=== PATIENT | female | born 1995 | race Caucasian/White ===

== ENCOUNTER 2018-07-02 09:50 | Outpatient (CLI) | payer SELFPAY ==
[2018-07-02 10:12] VITALS: BMI 33.4
[2018-07-02 10:39] LABS: Hematocrit 34.6 % (37-47); Hemoglobin 11.5 g/dl (12.0-15.0); Mean Corp Hgb Conc 33.2 g/gl (32-36); Mean Corpuscular Volume 87.2 fL (81-99); Mean Platelet Vol. 9.7 fl (6.2-12.0); Platelet Count 259 K/mm3 (150-450); RBC Distribution Width CV 13.4 % (11.6-14.6); RBC Distribution Width SD 42.8 fl (35.1-43.9); Red Blood Count 3.97 M/mm3 (4.2-5.4); White Blood Count 10.1 K/mm3 (4.4-11.0)
[2018-07-02 10:40] LABS: Scan Indicated on CBC? Y/N NO
[2018-07-02 10:51] LABS: Partial Thromboplast Time 26.6 Seconds (24.1-36.2); Prothrombin Time (Protime)PT. 13.6 SECONDS (11.7-14.9)
[2018-07-02 11:10] LABS: Protein, Urine (Random) 17.3 mg/dL (<11.9); Protein:Creat Ratio 278 mg/g CRE (0-200)
[2018-07-02 11:12] LABS: AST(SGOT) 18 U/L (15-37); Alanine Aminotransfer ALT/SGPT 18 U/L (13-56); Creatinine, Serum 0.48 mg/dL (0.55-1.02); EST Glomerular Filtration Rate 169 mL/min (>60); Est Glom Filt Rate - Afr Amer 204 mL/min (>60); Uric Acid 4.4 mg/dL (2.6-6.0)
[2018-07-03 12:23] LABS: 24H Urine Creat. Total Vol. 3.88 L; 24HR. Urine Creatinine 1.42 g/24 HR (0.70-1.90)
--- NOTE | 2018-07-07 08:22 | OB.TRI.HP_ITS ---
- Problem List (1) Headache in Status: Acute History of Present Illness Date of Service: 07/07/18 - Pt was seen in the office and sent to L&D Was patient seen by the physician?: Yes Reason For Visit: R/O PRE E Date of Service: 07/02/18 Final AURA: 09/05/18 Final AURA Source: LMP Gestational age: 31 Weeks and 3 Days History of Present Illness: Patient presented to the office with a headache that she described as a 1 out of 10 on the pain scale. She also noticed some dizziness when she went from a lyin g down position to a standing up position. She also noted some vision changes that resolved after blinking her eyes. Denied current vision changes, epigastric pain, right upper quadrant pain, nausea, vomiting, malaise. Allergies No Known Allergies Allergy (Verified 07/02/18 10:09) Laboratory Studies: Laboratory Tests 07/02/18 07/02/18 07/02/18 Range/Units 11:25 10:20 10:20 WBC (4.4-11.0) K/mm3 RBC (4.2-5.4) M/mm3 Hgb (12.0-15.0) g/dl Hct (37-47) % MCV (81-99) fL MCH (27.0-32.0) pg MCHC (32-36) g/gl RDW (11.6-14.6) % RDW Differential (35.1-43.9) fl Plt Count (150-450) K/mm3 MPV (6.2-12.0) fl PT (11.7-14.9) SECONDS INR APTT (24.1-36.2) Seconds Creatinine 0.48 L (0.55-1.02) mg/dL Estim Creat Clear Calc 149.50 ml/min Est GFR (MDRD) Af Amer 204 (>60) mL/min Est GFR (MDRD) Non-Af 169 (>60) mL/min Uric Acid 4.4 (2.6-6.0) mg/dL AST 18 (15-37) U/L ALT 18 (13-56) U/L U Random Total Protein 17.3 H (<11.9) mg/dL Ur Collection Duration 24.0 (24.0) HOURS Urine Total Volume 3.88 L Urine Creatinine 36.60 62.20 (NO RANGE EST.) mg/dL Ur Creatinine 24 Hour 1.42 (0.70-1.90) g/24 HR Protein/Creatinin Ratio 278 H (0-200) mg/g CRE 07/02/18 07/02/18 Range/Units 10:20 10:20 WBC 10.1 (4.4-11.0) K/mm3 RBC 3.97 L (4.2-5.4) M/mm3 Hgb 11.5 L (12.0-15.0) g/dl Hct 34.6 L (37-47) % MCV 87.2 (81-99) fL MCH 29.0 (27.0-32.0) pg MCHC 33.2 (32-36) g/gl RDW 13.4 (11.6-14.6) % RDW Differential 42.8 (35.1-43.9) fl Plt Count 259 (150-450) K/mm3 MPV 9.7 (6.2-12.0) fl PT 13.6 (11.7-14.9) SECONDS INR 1.0 APTT 26.6 (24.1-36.2) Seconds Creatinine (0.55-1.02) mg/dL Estim Creat Clear Calc ml/min Est GFR (MDRD) Af Amer (>60) mL/min Est GFR (MDRD) Non-Af (>60) mL/min Uric Acid (2.6-6.0) mg/dL AST (15-37) U/L ALT (13-56) U/L U Random Total Protein (<11.9) mg/dL Ur Collection Duration (24.0) HOURS Urine Total Volume L Urine Creatinine (NO RANGE EST.) mg/dL Ur Creatinine 24 Hour (0.70-1.90) g/24 HR Protein/Creatinin Ratio (0-200) mg/g CRE NST - FHR Rate Baby A FHR Category:: Category I Impression/Plan - Pre-e labs were drawn and normal - 24 hr urine protein started - BP's were normal - Follow up in the office
== END 2018-07-02 11:35 | disposition home or self-care (01) ==
LOC: WPOUT 09:55 → WP 09:56
PROVIDERS: Referring Provider Obstetrics & Gynecology; Visit Provider Obstetrics & Gynecology
DX: O26.893 Other specified pregnancy related conditions, third trimester (principal); R51 Headache; R42 Dizziness and giddiness; Z3A.31 31 weeks gestation of pregnancy
CPT/HCPCS: 36415; 59025; 59050; 82565; 82570; 84156; 84450; 84460; 84550; 85027; 85610; 85730; 99218; G0378

== ENCOUNTER 2018-08-30 06:54 | Inpatient (IN) | payer SELFPAY ==
[2018-08-30 06:57] VITALS: BMI 33.7
[2018-08-30 08:06] LABS: Absolute Lymphocyte Count 1.77 X10^3/ul (0.83-4.51); Absolute Neutrophil Count 4.4 X10^3/uL (2.0-7.7); Basophil# 0.01 X10^3/uL; Basophil% 0.1 % (0-1); Eosinophil# 0.03 X10^3/uL; Eosinophils% 0.4 % (0-5); Lymphocyte # 1.77 X10^3/ul (4.0); Lymphocyte % 26.4 % (19-41); Mean Corp Hgb Conc 33.3 g/gl (32-36); Mean Corpuscular Hgb 27.8 pg (27.0-32.0); Mean Corpuscular Volume 83.5 fL (81-99); Mean Platelet Vol. 8.4 fl (6.2-12.0); Monocyte# 0.46 X10^3/uL; Monocyte% 6.9 % (0-10); Neutrophil # 4.43 X10^3/uL (2.7-7.7); Neutrophil % 66.1 % (47-70); Platelet Count 211 K/mm3 (150-450); RBC Distribution Width CV 14.3 % (11.6-14.6); RBC Distribution Width SD 44.3 fl (35.1-43.9); Red Blood Count 3.95 M/mm3 (4.2-5.4); White Blood Count 6.7 K/mm3 (4.4-11.0)
[2018-08-30 08:07] LABS: POSITIVE COUNT NO; POSITIVE DIFFERENTIAL NO; POSITIVE MORPHOLOGY NO
[2018-08-30] MEDS: Lactated Ringers 1,000 ML 50 ML IV ×3 (08:11→12:53)
[2018-08-30] MEDS: Oxytocin 30 units/NS 500 ml 30 UNITS/500 ML IV.SOLN IV (08:12)
--- NOTE | 2018-08-30 10:59 | PCM.HP.OB ---
History Date of Admission: 08/30/18 Final AURA: 09/05/18 Final AURA Source: US <20 weeks Gestational age: 39 Weeks and 1 Days History of this : 23-year-old 2 para 1 at 39-1/7 weeks gestation with EDC of 09/05/2018 by first trimester ultrasound presents for elective induction of labor. has been complicated by maternal anxiety. She denies any vaginal bleeding, leaking of fluid. She has had good movement. Her anxiety is improved significantly since she was started on Zoloft 25 mg. She is also been on hydroxyzine 10 mg p.o. 3 times daily that was weaned down to 10 mg nightly recently. She has a history of gestational hypertension with her first , her first daughter was born with pulmonary valve stenosis but has not had any interventions. Patient has a history of seizures. Surgical history: She has a history of one previous vaginal delivery on 10/27/2016 of a 6 pound 5 ounce infant at 41-1/7 weeks gestation. She was induced for being 41 weeks. Allergies No Known Allergies Allergy (Verified 07/02/18 10:09) Home Medications: Home Medications Pnv No.103/Folic/Om3s/Fish Oil [ Gummies] 1 each PO DAILY 08/05/16 Aspirin [Aspirin, Baby] 81 mg PO DAILY@0800 07/02/18 Smoking Status: Never smoker Alcohol: None Number of Fetus(es): 1 Heart Tracing: Normal baseline, moderate variability, spontaneous accelerations upon admission. Repetitive decelerate TOCO Analysis: ctxs q 4-5 min History Past Pregnancies: Past Pregnancies Delivery Date Name GA/Weeks Outcome Route Weight Infant Gender Labor Length Anesthesia Delivery Location Provider FOB Expected Delivery Method: Spontaneous Vaginal Review of Systems Constitutional: Denies: Anorexia, Chills, Fever Eyes: Denies: Blurred vision, Vision Change Cardiovascular: Reports: Edema - trace. Denies: Chest Pain Respiratory: Reports: Cough - mild non productive, has had URI. Denies: Shortness of Breath Gastrointestinal: Denies: Abdominal Pain Genitourinary: Denies: Dysuria Skin: Denies: Rash Neurological: Denies: Blurred vision, Double vision, Change in Speech, Confusion Psychiatric: Reports: Anxiety Physical Exam General: Alert, Cooperative, No apparent distress Cardiovascular: Regular rate Lungs: Normal air movement Abdomen: Soft, Non Tender, Non-Distended, Gravid, Appropriate for Gestational Age Extremities:: Deep tendon reflexes - 2+, one beat of clonus, Other - trace edema Neurological: Negative for: Clonus EDUCATIONAL FUNDRAISING DIRECTOR: Normal external genitalia Estimated gestational size: Appropriate for gestational size Presentation: Cephalic Cervix Dilation (cm): 2.5 - AROM w/ moderte clear fluid Station: -2 Effacement (%): 70 Assessment/Plan All Active Problems Headache in (Acute) 23-year-old 2 para 1 at 39-1/7 weeks gestation for elective induction of labor. Risk benefits and alternatives to induction been discussed with patient, her questions were answered to her data section. Consent was signed. We will proceed with Pitocin and artificial rupture membranes induction. heart tones are reassuring and category 1 for the most part. Have epidural, nitrous oxide or Nubain as needed. Estimated weight is less than 4500 g clinically and pelvis clinically adequate to expect vaginal delivery. Patient had some mildly elevated blood pressures, but no symptoms of preeclampsia and her platelets are normal. We will continue to monitor for now.
[2018-08-30] MEDS: Oxytocin 30 units/NS 500 ml 30 UNITS/500 ML IV.SOLN 334 UNITS IV (16:37)
--- NOTE | 2018-08-30 16:54 | PCM.OB.VAG ---
Vaginal Delivery Maternal Presentation: Elective Induction Method of Induction: Pitocin, Amniotomy Amniotic Membrane Rupture Type: Artificial Amniotic Fluid Description: Clear Final AURA: 09/05/18 Final AURA Source: US <20 weeks Gestational age: 39 Weeks and 1 Days Date of Procedure: 08/30/18 Pre-Operative Diagnosis: labor Post-Operative Diagnosis: same Surgery/ Procedure Performed: Spontaneous Vaginal Delivery Type of Anesthesia: Epidural Description of Procedure: A vigorous female was delivered SUMAN over a second-degree perineal laceration. The remainder the was delivered with maternal pushing and gentle traction only in less than 15 seconds. The Pitocin infusion was initiated for active management of the third stage. The cord was clamped and cut after 1 minute. The infant was attended to by the waiting nursing staff. The placenta was delivered spontaneously and intact. The cervix and vagina were intact. The second-degree perineal laceration was repaired with 2-0 Vicryl suture in a running standard fashion. Sponge and needle counts were correct. A vaginal sweep was completed by me. Presentation: SUMAN Placental Delivery Description: Spontaneous Placenta Disposition: [facility] Cord Vessel Description: 3 Vessels Cord Entanglement: None Drain: Dempsey to straight drain Estimated Blood Loss: 200 Infant A gender: Female (1 minute): 8 (5 minute): 9 Episiotomy Description: None Laceration: 2nd degree Medications given after delivery: IV Pitocin Complications: None
[2018-08-30] MEDS: Oxytocin 30 units/NS 500 ml 30 UNITS/500 ML IV.SOLN 167 UNITS IV (17:10)
[2018-08-30] MEDS: Naproxen 250 MG Tablet 500 MG PO (17:40)
[2018-08-30 20:00] VITALS: BP 137/78; PULSE 96; RESP 16; TEMP 35.9; O2SAT 98
--- NOTE | 2018-08-30 20:00 | NURSING ---
Pt tearful at shift change. Talked with pt about plan of care and answered questions. Pt states she is anxious and needs rest. Pt denies pain and needs at this time.
[2018-08-30 23:27] VITALS: BP 127/72; PULSE 86; RESP 18; TEMP 36.4; O2SAT 96
[2018-08-30] MEDS: Zolpidem Tartrate 5 MG Tablet ORAL (23:31)
[2018-08-31 03:02] VITALS: BP 139/67; PULSE 81; RESP 16; TEMP 36.3
[2018-08-31] MEDS: Naproxen 250 MG Tablet 500 MG PO ×2 (04:21→12:47)
[2018-08-31] MEDS: Senna/Docusate Sodium 1 Tablet PO (04:22)
[2018-08-31 06:16] LABS: Hematocrit 32.7 % (37-47); Hemoglobin 10.5 g/dl (12.0-15.0); Mean Corp Hgb Conc 32.1 g/gl (32-36); Mean Corpuscular Hgb 27.3 pg (27.0-32.0); Mean Corpuscular Volume 85.2 fL (81-99); Mean Platelet Vol. 8.6 fl (6.2-12.0); Platelet Count 221 K/mm3 (150-450); RBC Distribution Width CV 14.1 % (11.6-14.6); Red Blood Count 3.84 M/mm3 (4.2-5.4); White Blood Count 9.3 K/mm3 (4.4-11.0)
[2018-08-31 06:21] LABS: Scan Indicated on CBC? Y/N NO
--- NOTE | 2018-08-31 07:56 | PCM.PN.OB ---
Subjective: Pain well controlled, average lochia. Had some significant anxiety last night but feels better this morning. Was able to sleep after taking some Ambien. - Physical Exam General: Alert, Cooperative, No apparent distress Lungs: Normal air movement Cardiovascular: Regular rate Abdomen: Soft, Non Tender, Non-Distended Extremities: Edema - trace Vital Signs Temp Pulse Resp BP Pulse Ox 97.4 F L 81 16 139/67 H 96 08/31/18 03:02 08/31/18 03:02 08/31/18 03:02 08/31/18 03:02 08/30/18 23:27 Oxygen Delivery Method Room Air Weight: 86.353 kg Body Mass Index (BMI) 33.7 Intake and Output for Last 24 Hours 08/29/18 08/30/18 08/31/18 23:59 23:59 23:59 Intake Total 2700 / 2700 Output Total 1200 / 1200 600 / 600 Balance 1500 / 1500 -600 / -600 Laboratory Tests Past 24 Hrs 08/30/18 08/30/18 08/31/18 07:50 07:50 05:48 WBC 6.7 9.3 RBC 3.95 L 3.84 L Hgb 11.0 L 10.5 L Hct 33.0 L 32.7 L MCV 83.5 85.2 MCH 27.8 27.3 MCHC 33.3 32.1 RDW 14.3 14.1 RDW Differential 44.3 H 43.0 Plt Count 211 221 MPV 8.4 8.6 Immature Gran % (Auto) 0.100 Neut % (Auto) 66.1 Lymph % (Auto) 26.4 [facility] % (Auto) 6.9 Eos % (Auto) 0.4 Baso % (Auto) 0.1 Absolute Neuts (auto) 4.4 Absolute Lymphs (auto) 1.77 Total Counted Not Reportable Blood Type B POSITIVE Antibody Screen NEGATIVE Medical Necessity - Tobacco Use Smoking Status: Never smoker Assessment/Plan All Active Problems Headache in (Acute) day #1 As per spontaneous vaginal delivery. Patient is doing well. Routine care. is working on breast-feeding and doing well. She desires discharge home today. Hydroxyzine that she was taking for anxiety due to concerns of it affecting breast milk supply Increase Zoloft to 50 mg daily In the office in 1-2 and 6 weeks or as needed
--- NOTE | 2018-08-31 08:01 | DCINST_ITS ---
Discharge Diet: No Restrictions Discharge Activity: Return to Normal Activity, May not drive while taking narcotic pain medications., May Shower May resume sexual activity in: 4-6 weeks Additional Activity Instructions:: Nothing in the vagina for 4-6 weeks. You may return to work/school in 6 weeks. Call your doctor if your incision/area has: Continuous Slow Oozing, Sudden Increased Bleeding, Increased Pain/ Swelling, Increased Redness, Foul Smelling Discharge Additional Instructions: If you experience any of the following, contact your healthcare provider. * Bleeding that soaks a pad every hour for 2 hours * Fever 100.4 or higher * Unrelieved incision or abdominal pain * Swelling, redness, discharge or bleeding from your incision or episiotomy site * Your incision begins to separate * Problems urinating (including inability to urinate or burning while urinating). * Visual changes * Severe headache * Flu-like symptoms * Pain or redness in one of both of your breasts * Pain, warmth, tenderness or swelling in your legs, especially the calf area * Frequent nausea and vomiting * Symptoms of depression or anxiety If you experience any of the following, call 911 or go to the nearest Emergency Room. * Chest pain * Problems breathing * Seizure activity * Partial or complete paralysis of a body part, slurred speech, weakness or drooping of the face, or a sudden inability to walk or hold your balance Allergies/Adverse Reactions: Allergies No Known Allergies Allergy (Verified 07/02/18 10:09) Medications to take at Discharge Pnv No.103/Folic/Om3s/Fish Oil [ Gummies] 1 each PO DAILY 08/05/16 Ibuprofen [Motrin] 600 mg PO Q6H PRN #60 tab 08/31/18 Sertraline HCl [Zoloft] 50 mg PO DAILY #30 tab 08/31/18 The following prescriptions were given: Sertraline HCl [Zoloft] 50 mg PO DAILY #30 tab Ibuprofen [Motrin] 600 mg PO Q6H PRN #60 tab PRN Reason: Pain Please Follow Up With: Gloria Mariscal MD - [phone] When: Call to make an appointment with your doctor in 6 weeks. Make a follow up in 1-2 weeks as well Primary Care Physician: Care Physician,No Primary [Primary Care Provider] - Test Results: Test results from this visit will be discussed in further detail at your follow- up appointment, if applicable.
[2018-08-31 08:09] VITALS: BP 129/80; PULSE 76; RESP 16; TEMP 36.1
[2018-08-31] MEDS: Acetaminophen 500 MG Tablet 1000 MG PO (09:07)
--- NOTE | 2018-08-31 10:56 | CASEMGMT ---
Addendum entered and electronically signed by Jaimie Diaz 08/31/18 16:44: Reviewed and approve PULP MILL SUPERVISOR student documentation below. -Jaimie Diaz, LEANDRO-Re, SURVEY TECHNICIAN Original Note: Social Work Labor and Delivery Date of Referral: 08/30/18 Time of Referral: 2218 Referred By:Dr. Parrish Date of Intervention: 08/31/18 Time of intervention: 1030am Reason for Referral: anxiety History obtained from: medical record, Mother of baby (MOB) Elena Jones Household Composition: MOB lives at home with father of baby Graeme Jones and their 2 year old daughter Alessandra. Patient's parent/guardian status: MOB and FOB have been together for over 4 years. MOB and FOB do not have children outside of their relationship. Medical history: MOB has been diagnosed with anxiety. MOB and seizure disorder when young due to being born premature but currently does not identify to have seizure disorder. ERINN's care began at 5 weeks. Baby Glynn was born on 08/30/18 at 6lbs and 2 oz with scores of 8 and 9. Educational Status: ERINN has completed 13 years of schooling. MOB confirmed to be able to read, write, and comprehend. Financial Status: ERINN did not work throughout and does not plan to get a job when medically ready. FOB is a game bird farmer. Infant supplies: ERINN reports to have car seat, bassinet for sleeping, clothing, diaper, wipes, and a breast pump. Childcare/givers: MOB and FOB will be primary care givers. ERINN's mother Becca will be supplemental direct care specialist. Transportation: MOB reported no issues with transportation as MOB and FOB both drive. Programs/agencies involved: MOB and FOB are not involved with any agencies. MOB accepted [facility] referral. Children Services/Legal issues: MOB denied any history with children services or having any legal issues. Behavioral Health Issues: Mental Health History: ERINN has been diagnosed with anxiety. MOB has been prescribed Zoloft for treatment. MOB also attends counseling appointments with a therapist/psychiatrist in [facility]. MOB denied experiencing PPD with of first child. MOB also denied any history or current thought/attempts of suicide. Substance use history: MOB denied any substance use prior or during . Family History: MOB did not note any family history of concern. Drug Screens: MOB tested negative at [facility] visit on 01/08/18. Family social stressors: MOB's main stressor is anxiety. MOB denied any other stressors at this time. Support systems: MOB identified FOB to be main support system. MOB's father also has been diagnosed with anxiety and has been supportive and helpful for MOB. MOB's mother and brother are also supports. PPD/ Shaken Baby/ Safe Sleeping: cinder pit worker software engineer intern reviewed information for PPD/Safe sleeping/shaken baby with MOB and MOB's mother Becca. Paper information provided in packets. ASSESSMENT: MOB was in room with mother Becca and baby Glynn. MOB's mother stayed for duration of assessment of general information. MOB answered all questions and provided information appropriately. MOB's mother later left so MOB could speak privately with social work software engineer intern. MOB was attentive for duration of conversation. MOB denied any domestic violence history or safety concerns with FOB or in the home. MOB became tearful when talking about anxiety. cinder pit worker software engineer intern provided emotional support. MOB spoke about when anxiety started in June [address] Mariscal was helpful and FOB was supportive. MOB reported anxiety stems from concerns with kelton Maki being born premature and having a seizure disorder like MOB herself did. MOB was previously prescribed hydroxyine for anxiety and has since stopped. MOB has now been prescribed Zoloft during first week of August 2018 and has reported it to be helpful. MOB plans to remain on Zoloft. MOB also has phone appointment with psychiatrist next week. MOB spoke about using personal robin, reading the bible, and praying to be coping mechanisms. MOB reported to be feeling anxious today. cinder pit worker software engineer intern provided emotional support throughout conversation as MOB was tearful at points. MOB gave attention to kelton Maki appropriately and in caring way as baby was sleeping in crib and MOB was standing for comfort. PLAN: MOB home with baby. PDD Packet/WIC and [facility] information/[facility] packet provided. cinder pit worker software engineer intern to submit [facility] referral. -Sarah Edwards, PULP MILL SUPERVISOR Student Senior Director Marketing.
--- NOTE | 2018-08-31 11:31 | CASEMGMT ---
Addendum entered and electronically signed by Jaimie Diaz 08/31/18 16:44: Reviewed and approve WARP YARN SORTER student documentation below. -LEANDRO Hernandez-Re, R D ENGINEER Original Note: Social Work Labor and Delivery [facility] referral submitted securely online through the [facility]'s website per verbal consent from MOB. No other services requested or indicated at this time. -Sarah Edwards, WARP YARN SORTER Student Medical Transcription Supervisor.
[2018-08-31 12:45] VITALS: BP 131/75; PULSE 74; RESP 18; TEMP 36.4
[2018-08-31 15:15] VITALS: BP 138/80; PULSE 78; RESP 18; TEMP 36.6
== END 2018-08-31 18:20 | disposition home or self-care (01) | DRG 807 ==
PROVIDERS: Obstetrics & Gynecology; Admitting Provider Obstetrics & Gynecology; Referring Provider Obstetrics & Gynecology; Visit Provider Obstetrics & Gynecology
DX: O99.344 Other mental disorders complicating childbirth (principal); F41.9 Anxiety disorder, unspecified; O70.1 Second degree perineal laceration during delivery; Z79.82 Long term (current) use of aspirin; Z79.899 Other long term (current) drug therapy; Z3A.39 39 weeks gestation of pregnancy; Z37.0 Single live birth
CPT/HCPCS: 59025; 59050; 85025; 85027; 86850; 86900; 99218; J7120; G0378

== ENCOUNTER 2018-09-04 20:05 | Inpatient (IN) | payer SELFPAY ==
[2018-09-04] VITALS (24 sets, daily range): BP systolic 134–161; BP diastolic 72–93; PULSE 68–93; RESP 16–20; TEMP 36–36.7; O2SAT 98–99; BMI 31.5
--- NOTE | 2018-09-04 17:11 | NURSING ---
Patient here at 1700 for re admit for elevated bp. At 1711 BP 140/72, has mild headache but not severe, 1749 BP 134/82 1759 BP 156/93 1807 161/82 1809 144/80 At 1750 no clonus ,arm reflexes +2 and leg reflexes +3 , states hands feel shaky, denies blurred vision.
[2018-09-04 17:58] LABS: Hematocrit 35.1 % (37-47); Hemoglobin 11.4 g/dl (12.0-15.0); Mean Corp Hgb Conc 32.5 g/gl (32-36); Mean Platelet Vol. 8.4 fl (6.2-12.0); Platelet Count 329 K/mm3 (150-450); RBC Distribution Width CV 14.1 % (11.6-14.6); RBC Distribution Width SD 41.5 fl (35.1-43.9); Red Blood Count 4.23 M/mm3 (4.2-5.4); White Blood Count 9.9 K/mm3 (4.4-11.0)
--- NOTE | 2018-09-04 18:00 | NURSING ---
Denies pain, [place] nurse nurse advocate notified of patient here and BPs taken. Notified Lab work done at 1740 no results at this time.
[2018-09-04 18:11] LABS: Scan Indicated on CBC? Y/N NO
[2018-09-04 18:19] LABS: AST(SGOT) 15 U/L (15-37); Alanine Aminotransfer ALT/SGPT 26 U/L (13-56); EST Glomerular Filtration Rate 129 mL/min (>60); Est Glom Filt Rate - Afr Amer 156 mL/min (>60); Uric Acid 4.3 mg/dL (2.6-6.0)
[2018-09-04 18:24] LABS: Prothrombin Time (Protime)PT. 13.4 SECONDS (11.7-14.9)
[2018-09-04 18:25] LABS: Partial Thromboplast Time 28.9 Seconds (24.1-36.2)
--- NOTE | 2018-09-04 19:10 | NURSING ---
Orders taken from Dr Yarbrough and report to Radha STOCK
--- NOTE | 2018-09-04 19:30 | NURSING ---
Dr Yarbrough in and viewed lab work and to see patient
--- NOTE | 2018-09-04 20:27 | NURSING ---
NURSING FUNERAL GREETER INTO ROOM TO ASSIST WITH IV START
[2018-09-04] MEDS: Lactated Ringers 1,000 ML 15 ML IV (20:44)
--- NOTE | 2018-09-04 21:02 | HP.PCM_ITS ---
- Problem List (1) Preeclampsia in period Status: Acute History Date of Admission: 08/30/18 Final AURA Source: US <20 weeks History of this : This is a 23 year-old, G 2, P 2, who is 5 days from a vaginal deliver y. She had an elective IOL at 39 wks. H/o anxiety in the controlled with Zoloft and Hydroxyzine. No gHTN in this most recent . She came into the office for follow up where she had a severe range blood pressure. She was sent over to the hospital for serial blood pressures and preeclampsia labs, and had an additional severe range blood pressure. She states she has had an off-and-on headache that is frontal and behind her eyes. Her WIN is currently resolved. No visual changes. Occasional tightening in her RUQ where she feels like she has to stretch out because it is uncomfortable. No epigastric pain or N/V. She otherwise feels well. She had a h/o gHTN in her first followed by re-admission for pre-eclampsia several days out from her delivery, and she states she was on magnesium at that time. Medical History: Medical History (Last Updated 09/04/18 @ 21:06 by Rossy Yarbrough DO) Anxiety F41.9 History of epilepsy Z86.69 History of gestational hypertension Z87.59 Allergies No Known Allergies Allergy (Verified 09/04/18 18:26) Home Medications: Home Medications Pnv No.103/Folic/Om3s/Fish Oil [ Gummies] 1 each PO DAILY 08/05/16 Ibuprofen [Motrin] 600 mg PO Q6H PRN #60 tab 08/31/18 Sertraline HCl [Zoloft] 50 mg PO DAILY 09/04/18 Smoking Status: Never smoker Alcohol: None History Past Pregnancies: Past Pregnancies Delivery Date Name GA/Weeks Outcome Route Weight Gender Labor Length Anesthesia Delivery Location Provider FOB 41 wk 39 wk Review of Systems Eyes: Denies: Blurred vision, Vision Change HEENT: Reports: Head Aches - No WIN currently but reports she has been having WIN's off-and-on recently Gastrointestinal: Denies: Abdominal Pain - Had 1 episode of RUQ discomfort, Nausea, Vomiting Neurological: Denies: Blurred vision, Double vision, Seizures Psychiatric: Reports: Anxiety Physical Exam Vitals: Vital Signs Temp Pulse Resp BP Pulse Ox 97.7 F L 92 16 151/80 H 99 09/04/18 20:49 09/04/18 20:49 09/04/18 20:49 09/04/18 20:49 09/04/18 20:49 General: Alert, No apparent distress Lungs: - - No increased resp effort Abdomen: Soft, Non Tender Neurological: Neuro grossly intact, - - Patellar reflexes hyperreflexive Assessment/Plan All Active Problems (Last Updated 09/04/18 @ 21:06 by Rossy Yarbrough DO) Headache in (Acute) Preeclampsia in period (Acute) This is a 23 year-old, G2, P2, who is 5 days from a vaginal delivery. Readmitted for preeclampsia given multiple severe range blood pressures and off-and-on WIN's. - Pre-eclampsia labs WNL on admission - Will start mag 4g bolus followed by 2g/hr for 24 hrs - Continue BP monitoring - Clear liquids - Strict I/O's - BP's are variable so will hold off on starting blood pressure medication. Will monitor blood pressure after mag is discontinued to determine if we need to start her on medication
--- NOTE | 2018-09-04 21:14 | NURSING ---
2106 IV NOTED TO BE EDEMATOUS. MAG STOPPED AT THIS TIME. FROM ANESTHESIA CALLED TO RESTART IV 2109 PT UP TO RESTROOM, PERICARE AND PAD CHANGED. PT THEN RETURNED TO BED WITHOUT DIFFICULTY
--- NOTE | 2018-09-04 21:33 | NURSING ---
2124 ON UNIT, UPDATED MAG WAS STOPPED A FEW MINS BEFORE BOLUS WAS COMPLETED DUE TO IV INFILTRATING. PT REPORTS FEELING MY CALVES ARE STIFF AND MY TONGUE IS NUMB PT DENIES SHORTNESS OF BREATH. PT ABLE TO SWALLOW, TONGUE NOT EDEMATOUS. NEW ORDER FOR MAG LEVEL AND MAY RESUME MAGNESIUM WHEN IV IS RESTARTED
[2018-09-04] MEDS: Magnesium Sulfate 20 GM/500 ML BAG IV (21:48)
--- NOTE | 2018-09-04 22:08 | NURSING ---
2146 IV restarted per . magnesium resumed. verified with Graeme STOCK
--- NOTE | 2018-09-04 22:13 | NURSING ---
pt reports numbness to tongue has resolved. will continue to monitor
[2018-09-04 22:31] LABS: Magnesium 3.5 mg/dL (1.6-2.6)
[2018-09-05] VITALS (23 sets, daily range): BP systolic 112–161; BP diastolic 48–90; PULSE 80–102; RESP 14–18; TEMP 36.2–37.2; O2SAT 96–99
--- NOTE | 2018-09-05 07:47 | PCM.PN.OB ---
Patient Problems: Active and Suspected Problems (Last Updated 09/04/18 @ 21:06 by Rossy Yarbrough DO) Preeclampsia in period (Acute) Subjective: Patient is doing well. Still having a frontal WIN that is also behind her eyes. She is now having a WIN posteriorly. Her WIN is mild and dull. She denies any visual changes with this. No abdominal pain, nausea, vomiting. No CP or leg pain. - Physical Exam General: Alert, No apparent distress HEENT: Atraumatic Lungs: - - No increased resp effort Abdomen: Soft, Non Tender Extremities: No edema Skin: No rashes Neurological: Neuro grossly intact Psych/Mental Status: Normal Affect Vital Signs Temp Pulse Resp BP Pulse Ox 98.1 F 90 18 146/77 H 98 09/05/18 05:00 09/05/18 05:00 09/05/18 05:00 09/05/18 05:00 09/05/18 05:00 Oxygen Delivery Method Room Air Weight: 178 lb Body Mass Index (BMI) 31.5 Intake and Output for Last 24 Hours 09/03/18 09/04/18 09/05/18 23:59 23:59 23:59 Intake Total 1195 / 1195 2169 / 2169 Output Total 900 / 900 2250 / 2250 Balance 295 / 295 -81 / -81 Laboratory Tests Past 24 Hrs 09/04/18 09/04/18 09/04/18 17:40 17:40 17:40 WBC 9.9 RBC 4.23 Hgb 11.4 L Hct 35.1 L MCV 83.0 MCH 27.0 MCHC 32.5 RDW 14.1 RDW Differential 41.5 Plt Count 329 MPV 8.4 PT 13.4 INR 1.0 APTT 28.9 Creatinine 0.60 Est GFR (MDRD) Af Amer 156 Est GFR (MDRD) Non-Af 129 Uric Acid 4.3 Magnesium AST 15 ALT 26 09/04/18 21:52 WBC RBC Hgb Hct MCV MCH MCHC RDW RDW Differential Plt Count MPV PT INR APTT Creatinine Est GFR (MDRD) Af Amer Est GFR (MDRD) Non-Af Uric Acid Magnesium 3.5 H AST ALT Medical Necessity - Tobacco Use Smoking Status: Never smoker Assessment/Plan All Active Problems (Last Updated 09/04/18 @ 21:06 by Rossy Wiswell, DO) Headache in (Acute) Preeclampsia in period (Acute) day #6 s/p - readmit for pre-eclampsia with mild-severe range BP's and an occasional WIN - Continue mag gtt for 24 hrs - Repeat labs this afternoon - BP's mostly mild range with an occasional severe range. Will start Labetalol 100mg BID - Clears while on mag and strict I&O's - Dispo: Discussed with patient will continue to monitor overnight tonight once she is off of mag gtt. Possible d/c home in the morning
[2018-09-05] MEDS: Magnesium Sulfate 20 GM/500 ML BAG IV (08:08)
[2018-09-05] MEDS: Sertraline 50 MG Tablet PO (10:05)
[2018-09-05] MEDS: Labetalol 100 MG Tablet PO ×2 (10:05→22:10)
[2018-09-05 14:57] LABS: Hematocrit 35.2 % (37-47); Hemoglobin 11.6 g/dl (12.0-15.0); Mean Corpuscular Hgb 27.4 pg (27.0-32.0); Mean Platelet Vol. 8.3 fl (6.2-12.0); Platelet Count 300 K/mm3 (150-450); RBC Distribution Width CV 14.4 % (11.6-14.6); RBC Distribution Width SD 43.8 fl (35.1-43.9); Red Blood Count 4.24 M/mm3 (4.2-5.4); Scan Indicated on CBC? Y/N NO; White Blood Count 11.1 K/mm3 (4.4-11.0)
[2018-09-05 15:18] LABS: ALB/GLOB Ratio 0.7 RATIO (0.9-2.4); AST(SGOT) 16 U/L (15-37); Alanine Aminotransfer ALT/SGPT 25 U/L (13-56); Alkaline Phosphatase 174 U/L (45-117); Anion Gap 6 (5-15); BUN 6 mg/dL (7-18); BUN/Creat Ratio 10.1 RATIO (10-20); Calcium,Total 6.9 mg/dL (8.5-10.1); Chloride 105 mmol/L (98-107); EST Glomerular Filtration Rate 130 mL/min (>60); Est Glom Filt Rate - Afr Amer 158 mL/min (>60); Estimated Creatinine Clearance 118.57 ml/min; Globulin 4.3 g/dL (2.2-4.2); Glucose 97 mg/dL (74-106); Potassium 3.5 mmol/L (3.5-5.1); Protein, Total 7.3 g/dL (6.4-8.2); Sodium Level 135 mmol/L (136-145)
--- NOTE | 2018-09-05 18:28 | NURSING ---
Dr Yarbrough notified of Magnesium bag has approximately 50cc left. Ok not to hand another bag of magnesium. Vitals reviewed and no symptoms voiced.
[2018-09-05] MEDS: 0.9% Saline Lock 10 ML Syringe IV (20:01)
--- NOTE | 2018-09-05 20:21 | NURSING ---
Magnesium Sulfate dc'd per order.
[2018-09-05] MEDS: Acetaminophen 500 MG Tablet 1000 MG PO (20:25)
[2018-09-06 01:14] VITALS: BP 127/61; PULSE 68; RESP 18; TEMP 36.5; O2SAT 98
[2018-09-06 04:46] VITALS: BP 138/71; PULSE 68; RESP 16; TEMP 36.5; O2SAT 96
[2018-09-06 08:00] VITALS: BP 134/74; PULSE 90; RESP 18; TEMP 37; O2SAT 97
[2018-09-06] MEDS: 0.9% Saline Lock 10 ML Syringe IV (08:39)
--- NOTE | 2018-09-06 08:45 | NURSING ---
Reflexes +2. No clonus. Patient has very mild headache that she rates 1/10. It is typically relieved by Tylenol.
[2018-09-06] MEDS: Labetalol 100 MG Tablet PO (09:02)
[2018-09-06] MEDS: Sertraline 50 MG Tablet PO (09:02)
--- NOTE | 2018-09-06 09:02 | PCM.PN.OB ---
Patient Problems: Active and Suspected Problems (Last Updated 09/04/18 @ 21:06 by Rossy Yarbrough DO) Preeclampsia in period (Acute) Subjective: Patient doing well off magnesium. Denies WIN, vision changes, RUQ pain, epigastric pain, nausea, vomiting. She feels well and ready to go home. Tolerating small amounts of food but she does not have a full appetite currently. Says she has not slept well in the hospital. - Physical Exam General: Alert, No apparent distress HEENT: Atraumatic Lungs: - - No increased resp effort Abdomen: Soft, Non Tender Extremities: No edema Skin: No rashes Neurological: Neuro grossly intact Psych/Mental Status: Normal Affect, Appropriate Vital Signs Temp Pulse Resp BP Pulse Ox 98.6 F 90 18 134/74 H 97 09/06/18 08:00 09/06/18 08:00 09/06/18 08:00 09/06/18 08:00 09/06/18 08:00 Oxygen Delivery Method Room Air Weight: 178 lb Body Mass Index (BMI) 31.5 Intake and Output for Last 24 Hours 09/04/18 09/05/18 09/06/18 23:59 23:59 23:59 Intake Total 1195 / 1195 6850.1 / 6850.1 Output Total 900 / 900 6700 / 6700 Balance 295 / 295 150.1 / 150.1 Laboratory Tests Past 24 Hrs 09/05/18 09/05/18 14:40 14:40 WBC 11.1 H RBC 4.24 Hgb 11.6 L Hct 35.2 L MCV 83.0 MCH 27.4 MCHC 33.0 RDW 14.4 RDW Differential 43.8 Plt Count 300 MPV 8.3 Sodium 135 L Potassium 3.5 Chloride 105 Carbon Dioxide 24.0 Anion Gap 6 BUN 6 L Creatinine 0.60 Estim Creat Clear Calc 118.57 Est GFR (MDRD) Af Amer 158 Est GFR (MDRD) Non-Af 130 BUN/Creatinine Ratio 10.1 Glucose 97 Calcium 6.9 L Total Bilirubin 0.30 AST 16 ALT 25 Alkaline Phosphatase 174 H Total Protein 7.3 Albumin 3.0 L Globulin 4.3 H Albumin/Globulin Ratio 0.7 L Medical Necessity - Tobacco Use Smoking Status: Never smoker Assessment/Plan All Active Problems (Last Updated 09/04/18 @ 21:06 by Rossy Yarbrough DO) Headache in (Acute) Preeclampsia in period (Acute) - Patient now [place] [facility] [place] [place] - No pre-eclampsia symptoms this morning - BP's normal with occasional mild range. Will continue Labetalol 100mg BID at home - Pt to come in this week for an office visit and blood pressure check - Reviewed to call with any signs or symptoms of pre-eclampsia
--- NOTE | 2018-09-06 09:08 | DCINST_ITS ---
- Discharge Diagnoses Current Active Problems: Current Active and Chronic Problems (Last Updated 09/04/18 @ 21:06 by Rossy Yarbrough DO) Preeclampsia in period (Acute) You will use the following diet at home:: Regular Discharge Activity: Return to Normal Activity, May Drive, May Shower May resume sexual activity in: 4-6 weeks Weight Bearing Status: Full weight bearing Lifting Restrictions: None Call your doctor if you observe: Fever of 101 or Higher, Inability to urinate, Inability to have a bowel movement, Using more than one pad per hour, Shortness of breath, Dizziness, Chest pain, Increased palpitations (irregular heartbeat), Calf discomfort, Uncontrolled pain Instructions: Understanding Preeclampsia Additional Instructions: Call with headaches that do not resolve with over the counter medication, vision changes, new upper abdominal pain, nausea and vomiting Allergies/Adverse Reactions: Allergies No Known Allergies Allergy (Verified 09/04/18 18:26) Medications to take at Discharge Pnv No.103/Folic/Om3s/Fish Oil [ Gummies] 1 each PO DAILY 08/05/16 Ibuprofen [Motrin] 600 mg PO Q6H PRN #60 tab 08/31/18 Sertraline HCl [Zoloft] 50 mg PO DAILY 09/04/18 Primary Care Physician: Care Physician,No Primary [Primary Care Provider] - Test Results: Test results from this visit will be discussed in further detail at your follow- up appointment, if applicable. Please Follow Up With: Rossy Yarbrough DO When: 1 week for blood pressure check
--- NOTE | 2018-09-06 09:17 | PCM.PN.OB ---
Patient Problems: Active and Suspected Problems (Last Updated 09/04/18 @ 21:06 by Rossy Yarbrough DO) Preeclampsia in period (Acute) Subjective: Patient doing well. No WIN, vision changes, upper abd pain, N/V. Tolerating diet. Ambulating and voiding without difficulty. Denies lightheadedness, dizziness, CP, SOB, leg pain. Pain well controlled. Lochia minimal. She states she might want to go home today but is undecided. - Physical Exam General: Alert, No apparent distress HEENT: Atraumatic Lungs: - - No increased resp effort Abdomen: Soft, Non Tender, - - FF@U Extremities: No Calf Tenderness, Edema - Decreased from yesterday Skin: No rashes Neurological: Neuro grossly intact Psych/Mental Status: Normal Affect, Appropriate Vital Signs Temp Pulse Resp BP Pulse Ox 98.6 F 90 18 134/74 H 97 09/06/18 08:00 09/06/18 08:00 09/06/18 08:00 09/06/18 08:00 09/06/18 08:00 Oxygen Delivery Method Room Air Weight: 178 lb Body Mass Index (BMI) 31.5 Intake and Output for Last 24 Hours 09/04/18 09/05/18 09/06/18 23:59 23:59 23:59 Intake Total 1195 / 1195 6850.1 / 6850.1 Output Total 900 / 900 6700 / 6700 Balance 295 / 295 150.1 / 150.1 Laboratory Tests Past 24 Hrs 09/05/18 09/05/18 14:40 14:40 WBC 11.1 H RBC 4.24 Hgb 11.6 L Hct 35.2 L MCV 83.0 MCH 27.4 MCHC 33.0 RDW 14.4 RDW Differential 43.8 Plt Count 300 MPV 8.3 Sodium 135 L Potassium 3.5 Chloride 105 Carbon Dioxide 24.0 Anion Gap 6 BUN 6 L Creatinine 0.60 Estim Creat Clear Calc 118.57 Est GFR (MDRD) Af Amer 158 Est GFR (MDRD) Non-Af 130 BUN/Creatinine Ratio 10.1 Glucose 97 Calcium 6.9 L Total Bilirubin 0.30 AST 16 ALT 25 Alkaline Phosphatase 174 H Total Protein 7.3 Albumin 3.0 L Globulin 4.3 H Albumin/Globulin Ratio 0.7 L Medical Necessity - Tobacco Use Smoking Status: Never smoker Assessment/Plan All Active Problems (Last Updated 09/04/18 @ 21:06 by Rossy Yarbrough, ) Headache in (Acute) Preeclampsia in period (Acute) PPD#1 s/p . IOL for pre-eclampsia with severe features - Pre-eclampsia with severe features: S/p 24 hrs mag PP. BP's mild range on PO Hydralazine. Will send rx for Hydralazine for pt to continue at home. Asymptomatic this morning - PPH: Hgb stable yesterday and this morning. Lochia normal. Pt without symptoms of anemia. Discussed daily iron at home. Will send rx for Ferrous Sulfate - Otherwise doing well - Desires Mirena IUD at 8 wks - Dispo: Possible d/c later today. Reviewed follow up this week for BP check and then in 6 weeks
== END 2018-09-06 10:20 | disposition home or self-care (01) | DRG 776 ==
LOC: WPOUT 20:09
PROVIDERS: Admitting Provider Obstetrics & Gynecology; Referring Provider Obstetrics & Gynecology; Visit Provider Obstetrics & Gynecology
DX: O14.95 Unspecified pre-eclampsia, complicating the puerperium (principal); F41.9 Anxiety disorder, unspecified; Z79.899 Other long term (current) drug therapy; Z86.69 Personal history of other diseases of the nervous system and sense organs; Z87.59 Personal history of other complications of pregnancy, childbirth and the puerperium
CPT/HCPCS: 80053; 82565; 83735; 84450; 84460; 84550; 85027; 85610; 85730; 99218; J7120; A4216; G0378

== ENCOUNTER → 2019-06-24 14:59 | Outpatient (CLI) | payer SELFPAY ==
[2019-06-24 14:35] VITALS: BMI 32.4
[2019-06-24 15:43] LABS: Free T3 3.2 pg/mL (2.18-3.98); T4 Free Direct 0.91 ng/dL (0.76-1.46); Thyroid Stim Hormone (TSH) 0.01 uIU/mL (0.358-3.74)
[2019-06-27 20:07] LABS: Thyroid Stim Immunoglob 2.05 IU/L (0.00-0.55)
[2019-06-29 09:56] LABS: Thyroid Peroxidase AB 13 IU/mL (0-34)
== END ==
PROVIDERS: PCP Nurse Practitioner Primary Care; Referring Provider Internal Medicine Endocrinology, Diabetes & Metabolism; Visit Provider Internal Medicine Endocrinology, Diabetes & Metabolism
DX: E05.90 Thyrotoxicosis, unspecified without thyrotoxic crisis or storm (principal)
CPT/HCPCS: 36415; 84439; 84443; 84445; 84481; 86376

== ENCOUNTER → 2019-08-09 09:53 | Outpatient (CLI) | payer SELFPAY ==
[2019-06-24 16:23] VITALS: BMI 31.5
[2019-08-09 11:15] LABS: Free T3 3.7 pg/mL (2.18-3.98); T4 Free Direct 1.13 ng/dL (0.76-1.46); Thyroid Stim Hormone (TSH) 0.01 uIU/mL (0.358-3.74)
== END ==
PROVIDERS: PCP Nurse Practitioner Primary Care; Referring Provider Internal Medicine Endocrinology, Diabetes & Metabolism; Visit Provider Internal Medicine Endocrinology, Diabetes & Metabolism
DX: E05.90 Thyrotoxicosis, unspecified without thyrotoxic crisis or storm (principal)
CPT/HCPCS: 36415; 84439; 84443; 84481